=== PATIENT | female | born 1995 | race American Indian/Alaskan Native ===

== ENCOUNTER 2020-12-13 19:29 | Emergency (ER) | payer OTHER, MEDICAID ==
--- NOTE | 2020-12-13 23:38 | XRay Report ---
Right leg-4 views INDICATION: right calf pain. COMPARISON: None. IMPRESSION: Rounded masslike prominence of the proximal calf posteriorly and also medially. Given th e history, findings could be seen with a muscle strain or hematoma. No acute fracture. Normal align ment. No significant DJD. Signer Name: Arun Kelley MD Signed: 12/13/2020 11:34 PM Workstation Name: [id number]
--- NOTE | 2020-12-14 02:05 | Emergency Department Report ---
ED Extremity Problem HPI - General Chief complaint: Extremity Injury, Lower Stated complaint: RT LEG PAIN Time Seen by Provider: 12/14/20 01:55 Source: patient Mode of arrival: Ambulatory Limitations: No Limitations - History of Present Illness Initial comments: 25-year-old -Chinese female presents to the emergency room for right calf muscle pain x1 week. Patient states that she had been running and playing with her daughter. She states the pain is worse when she weight bears. Patient states has been taken ibuprofen Tylenol without much relief. Patient denies any fever. She came via EMS. She states that her daughter has been placing hot compresses which seems to help some. He denies any past medical history except obesity. Onset/Timin -: week(s) Location: right, lower extremity History of Same: No Radiation: distal Severity scale (0 -10): 10 Quality: stabbing, sharp Consistency: constant Improves with: elevation, rest Worsens with: weight bearing Associated Symptoms: denies other symptoms - Related Data Previous Rx's Medication Instructions Recorded Last Taken Type Ibuprofen [Motrin 800 MG tab] 800 mg PO Q8HR PRN #30 tablet 12/14/20 Unknown Rx Allergies Allergy/AdvReac Type Severity Reaction Status Date / Time No Known Allergies Allergy Unverified 12/13/20 23:06 ED Review of Systems ROS: Stated complaint: RT LEG PAIN Other details as noted in HPI Comment: All other systems reviewed and negative ED Past Medical Hx - Past Medical History Previous Medical History?: Yes Additional medical history: Obesity - Surgical History Past Surgical History?: No - Social History Smoking Status: Never Smoker Substance Use Type: None - Medications Home Medications: Home Medications Medication Instructions Recorded Confirmed Last Taken Type Ibuprofen [Motrin 800 MG tab] 800 mg PO Q8HR PRN #30 tablet 12/14/20 Unknown Rx ED Physical Exam - General Limitations: No Limitations General appearance: alert, in no apparent distress - Head Head exam: Present: atraumatic, normocephalic - Eye Eye exam: Present: normal appearance - Expanded Lower Extremity Exam Right Hip exam: Present: normal inspection, full ROM Upper Leg exam: Present: normal inspection, full ROM Knee exam: Present: normal inspection, full ROM Lower Leg exam: Present: full ROM, tenderness, swelling. Absent: ecchymosis, deformity Ankle exam: Present: normal inspection, full ROM Foot/Toe exam: Present: normal inspection, full ROM Neuro vascular tendon exam: Present: no vascular compromise - Back Exam Back exam: Present: normal inspection, full ROM - Neurological Exam Neurological exam: Present: alert, oriented X3 - Psychiatric Psychiatric exam: Present: normal affect, normal mood ED Course Vital Signs 12/13/20 23:01 Temperature 99.7 F H Pulse Rate 118 H Respiratory 14 Rate Blood Pressure 120/81 O2 Sat by Pulse 97 Oximetry Critical care attestation.: If time is entered above; I have spent that time in minutes in the direct care of this critically ill patient, excluding procedure time. ED Disposition Clinical Impression: Strain of right calf muscle, Severely overweight Disposition: TO HOME OR SELFCARE Is pt being admited?: No Does the pt Need Aspirin: No Condition: Stable Instructions: Muscle Strain, [id number] Additional Instructions: X-ray shows no acute fracture. It does show possible muscle strain with a hematoma. Very important for you to follow-up with orthopedic provider as you may need further studies. Prescriptions: Ibuprofen [Motrin 800 MG tab] 800 mg PO Q8HR PRN #30 tablet PRN Reason: Pain , Severe (7-10) Referrals: DONNA BANUELOS MD [Staff Physician] - 3-5 Days Forms: Work/School Release Form(ED) Time of Disposition: 02:35
[2020-12-14] MEDS ORDERED: HYDROcodone/ACETAMINOPHEN 7.5-325MG TAB PO ONE (02:33)
[2020-12-14 02:56] VITALS: BP 122/74
== END 2020-12-14 03:05 | disposition home or self-care (01) ==
LOC: ED 19:29
DX: S86.911A Strain of unspecified muscle(s) and tendon(s) at lower leg level, right leg, initial encounter (principal); E66.01 Morbid (severe) obesity due to excess calories; Y93.02 Activity, running; Y93.89 Activity, other specified; Y92.89 Other specified places as the place of occurrence of the external cause; Y99.8 Other external cause status
CPT/HCPCS: 99283